=== PATIENT | female | born 1960 | race African-American/Black ===

== ENCOUNTER 2021-07-18 08:55 | Emergency (ER) | payer OTHER, MEDICAID ==
[~2021-07-18] VITALS: Ht 157.5 cm; Wt 72.0 kg
[2021-07-18] MEDS ORDERED: BIMA2.5D4 EACHEYE (09:14)
[2021-07-18] MEDS ORDERED: TAP5 PO (09:14)
[2021-07-18] MEDS ORDERED: ATOR40TA70 PO (09:14)
[2021-07-18] MEDS ORDERED: DULO60CA64 PO (09:14)
[2021-07-18] MEDS ORDERED: GLYB1.253 PO (09:14)
[2021-07-18] MEDS ORDERED: METO-411 PO (09:14)
[2021-07-18] MEDS ORDERED: HYDR-4133 PO (09:14)
[2021-07-18] MEDS ORDERED: LORAZEPAM (09:14)
[2021-07-18] MEDS ORDERED: VALS320T16 PO (09:14)
[2021-07-18] MEDS ORDERED: SODIUM CHLORIDE 0.9% 1,000 ML IV ONE (09:30)
[2021-07-18] MEDS ORDERED: HYDRALAZINE 20MG/ML VIAL IV ONE (09:30)
[2021-07-18 10:01] LABS: BASOPHILS % 0.6 % (0.0-2.0); EOSINOPHILS % 0.9 % (0.0-5.0); HEMATOCRIT. 42.6 % (36.0-48.0); HEMOGLOBIN. 13.4 g/dL (12.0-16.0); MEAN CORPUSCULAR HEMOGLOBIN 25.5 pg (28.0-32.0); MEAN CORPUSCULAR VOLUME 80.9 fL (81.0-99.0); MEAN PLATELET VOLUME 8.3 fl (7.4-10.4); MONOCYTES % 7.5 % (2.0-8.0); PLATELET 224 x1000/uL (130-400); RED BLOOD CELL COUNT 5.26 mill/uL (4.2-5.4); RED CELL DISTRIBUTION WIDTH 15.4 % (11.6-14.6)
[2021-07-18 10:11] LABS: CHLORIDE 107 mEq/L (98-107)
[2021-07-18] MEDS ORDERED: KETOROLAC 15MG/ML VIAL IV ONE (11:15)
[2021-07-18 11:28] VITALS: BP 162/76
== END 2021-07-18 12:44 | disposition home or self-care (01) ==
LOC: ER 10:40
DX: I16.0 Hypertensive urgency (principal); R51.9 Headache, unspecified; E11.9 Type 2 diabetes mellitus without complications; E78.00 Pure hypercholesterolemia, unspecified; F41.9 Anxiety disorder, unspecified; E05.90 Thyrotoxicosis, unspecified without thyrotoxic crisis or storm; H40.9 Unspecified glaucoma; Z90.49 Acquired absence of other specified parts of digestive tract; Z88.6 Allergy status to analgesic agent
CPT/HCPCS: 36415; 70450; 80053; 85025; 93005; 96361; 96374; 96375; 99285; J0360; J1885; J7030

== ENCOUNTER 2021-08-18 12:43 | Emergency (ER) | payer OTHER, MEDICAID ==
[~2021-08-18] VITALS: Ht 157.5 cm; Wt 72.0 kg
[~2021-08-18 12:43] MED LIST: ATOR40TA70 PO; BIMA2.5D4 EACHEYE; DULO60CA64 PO; GLYB1.253 PO; HYDR-4133 PO; LORAZEPAM; METO-411 PO; TAP5 PO; VALS320T16 PO
[2021-08-18] MEDS ORDERED: IBUPROFEN 600MG TABLET PO STA (16:15)
[2021-08-18] MEDS ORDERED: AMOX-494 PO (16:18)
[2021-08-18] MEDS ORDERED: IBUP-2029 PO (16:18)
[2021-08-18 16:39] VITALS: BP 122/86
== END 2021-08-18 16:44 | disposition home or self-care (01) ==
LOC: ER 12:43
DX: H66.92 Otitis media, unspecified, left ear (principal); Z88.6 Allergy status to analgesic agent; Z88.8 Allergy status to other drugs, medicaments and biological substances
CPT/HCPCS: 99283